=== PATIENT | female | born 1950 | race Caucasian/White ===

== ENCOUNTER 2021-09-10 10:47 | Emergency (ER) | payer MEDICARE, BC ==
--- NOTE | 2021-09-10 12:10 | EDM.PDOC ---
ED HPI GENERAL MEDICAL PROBLEM - General Chief Complaint: General Stated Complaint: SHORT OF BREATH? Time Seen by Provider: 09/10/21 11:49 Source of Information: Reports: Patient, Significant Other History Limitations: Reports: No Limitations - History of Present Illness INITIAL COMMENTS - FREE TEXT/NARRATIVE: Patient presents at the request of her [place] provider after getting results today from a 09/07/[address]/contrast that was "suboptimal" in ruling out PE. She had had a d-dimer of [address] showed "ground glass consistent with covid pneumonia". Patient was tested covid positive 12 days ago and was symptomatic 2 days prior to that; so 14 days total now. She never had fever but did have cough, dyspnea, fatigue, nausea, loss of smell/taste. That has all improved but still some lingering cough and mild dyspnea. No chest pain. Treatments [employer]: Reports: Other Medication(s) - Related Data Allergies Allergy/AdvReac Type Severity Reaction Status Date / Time escitalopram [From Lexapro] Allergy Drowsiness Verified 09/10/21 11:17 Sulfa (Sulfonamide Allergy Hives Verified 09/10/21 11:17 Antibiotics) Home Meds: Home Meds Cholecalciferol (Vitamin D3) [Vitamin D3] 2,000 unit PO DAILY 09/11/18 [History] Denosumab [Prolia] 60 mg SUBCUT ASDIRECTED 09/11/18 [History] Losartan [Cozaar] 50 mg PO DAILY 09/11/18 [History] [place]-3/DHA/Epa/Fish Oil [[place]-3 Fish Oil 1,000 MG Sfgl] 1,000 mg PO DAILY 09/11/18 [History] Timolol Maleate [Timoptic] 1 drop EYEBOTH BEDTIME 09/11/18 [History] Travoprost [Travatan Z] 1 drop EYEBOTH DAILY 09/11/18 [History] Aspirin [Adult Low Dose Aspirin EC] 81 mg PO DAILY 09/10/21 [History] Doxycycline Hyclate 100 mg PO BID 09/10/21 [History] Past Medical History HEENT History: Reports: Cataract, Glaucoma, Impaired Vision Cardiovascular History: Reports: High Cholesterol, Hypertension Respiratory History: Reports: Sleep Apnea Gastrointestinal History: Reports: Fatty Liver, GERD, Hemorrhoids, Irritable Bowel Syndrome Genitourinary History: Reports: None 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: Musculoskeletal History: Reports: Arthritis Neurological History: Reports: None Psychiatric History: Reports: Depression Endocrine/Metabolic History: Reports: None Hematologic History: Reports: None Oncologic (Cancer) History: Reports: Breast, Other (See Below) Other Oncologic History: Left breast mastectomy Dermatologic History: Reports: None - Infectious Disease History Infectious Disease History: Reports: Novel Coronavirus - Past Surgical History HEENT Surgical History: Reports: Cataract Surgery, LASIK Cardiovascular Surgical History: Reports: None Respiratory Surgical History: Reports: None GI Surgical History: Reports: Cholecystectomy, Colonoscopy, EGD, Polypectomy Female Surgical History: Reports: Breast Reconstruction, D&C, Hysterectomy, Mastectomy, Salpingo-Oophorectomy, Tubal Ligation Endocrine Surgical History: Reports: None Neurological Surgical History: Reports: None Musculoskeletal Surgical History: Reports: None Oncologic Surgical History: Reports: Biopsy of Breast Dermatological Surgical History: Reports: None Social & Family History - Tobacco Use Tobacco Use Status *Q: Never Tobacco User - Caffeine Use Caffeine Use: Reports: Coffee, Soda, Tea - Recreational Drug Use Recreational Drug Use: No ED ROS GENERAL - Review of Systems Review Of Systems: See Below Constitutional: Reports: Fatigue. Denies: Fever HEENT: Denies: Ear Pain, Throat Pain, Vision Change Respiratory: Reports: Shortness of Breath (mild but improved), Cough Cardiovascular: Denies: Chest Pain, Lightheadedness, Syncope Endocrine: Reports: Fatigue GI/Abdominal: Denies: Abdominal Pain, Diarrhea, Vomiting Skin: Denies: Cyanosis, Jaundice, Mottled, Pallor, Diaphoresis Neurological: Denies: Confusion, Dizziness, Seizure, Syncope, Trouble Speaking, Difficulty Walking Psychiatric: Denies: Agitation, Anxiety, Confusion ED EXAM, GENERAL - Physical Exam Exam: See Below Exam Limited By: No Limitations General Appearance: Alert, WD/WN, No Apparent Distress Eye Exam: Bilateral Eye: EOMI, Normal Inspection, PERRL Ears: Normal External Exam, Hearing Grossly Normal Nose: Normal Inspection, No Blood Throat/Mouth: Normal Inspection, Normal Lips, Normal Voice, No Airway Compromise Head: Atraumatic, Normocephalic Neck: Normal Inspection, Full Range of Motion Respiratory/Chest: No Respiratory Distress, Lungs Clear, Normal Breath Sounds, No Accessory Muscle Use. No: Crackles, Rales, Rhonchi, Wheezing, Stridor Cardiovascular: Regular Rate, Rhythm, No Murmur Extremities: Normal Inspection, Normal Range of Motion Neurological: Alert, Oriented, Normal Cognition, No Motor/Sensory Deficits Psychiatric: Normal Affect, Normal Mood Skin Exam: Warm, Dry, Intact, Normal Color, No Rash Course - Vital Signs Last Recorded V/S: Last Vital Signs Temp 96.7 F L 09/10/21 10:51 Pulse 55 L 09/10/21 10:51 Resp 18 09/10/21 10:51 BP 152/63 H 09/10/21 10:51 Pulse Ox 97 09/10/21 10:51 - Orders/Labs/Meds Orders: Active Orders 24 hr Category Date Time Status Sodium Chloride 0.9% [Normal Saline] 100 ml Med 09/10/21 13:15 Active IV ASDIRECTED Medication Orders Sodium Chloride (Normal Saline) 100 mls @ 200 mls/hr IV ASDIRECTED JEAN Last Admin: 09/10/21 13:14 Dose: 200 mls/hr Documented by: EMILY Meds: Medications Generic Name Dose Route Start Last Admin Trade Name Freq PRN Reason Stop Dose Admin Sodium Chloride 100 mls @ 200 mls/hr 09/10/21 13:15 09/10/21 13:14 Normal Saline IV 200 mls/hr ASDIRECTED JEAN Administration Discontinued Medications Generic Name Dose Route Start Last Admin Trade Name Freq PRN Reason Stop Dose Admin Iopamidol 75 ml 09/10/21 13:07 09/10/21 13:13 Iopamidol 755 Mg/Ml 75 Ml Bottle IVPUSH 09/10/21 13:08 75 ml ONETIME ONE Administration - Re-Assessments/Exams Free Text/Narrative Re-Assessment/Exam: 09/10/21 12:[address] report, indicating recommendation for consideration of CTA if any ongoing concern. I discussed findings with patient. She would like to know for sure there is not a PE and would like to get the CTA now. While I feel it is not very likely based on current CT and her improving symptoms, it is not unreasonable, in light of radiologists recommendation so will proceed with CTA. 09/10/21 14:04 CTA shows negative for PE but still covid pneumonia evident per report. Discussed findings and recommendations for continuing quarantine until cleared by PCP. Discharged to home in stable condition. Departure - Departure Time of Disposition: 14:05 Disposition: Home, Self-Care 01 Condition: Good Clinical Impression: Pneumonia due to COVID-19 virus - Discharge Information Referrals: Priyanka Ibrahim NP [Primary Care Provider] - Forms: ED Department Discharge Additional Instructions: CTA rules out PE today. Covid pneumonia still present so quarantine important until cleared by your PCP. Follow up with your PCP when they advise or if having any problems. If worsening, go to clinic or ER as needed. Sepsis Event Note (ED) - Evaluation Sepsis Screening Result: No Definite Risk - Focused Exam Vital Signs: Vital Signs Temp Pulse Resp BP Pulse Ox 09/10/21 10:51 96.7 F L 55 L 18 152/63 H 97 - My Orders Last 24 Hours: My Active Orders 09/10/21 13:15 Sodium Chloride 0.9% [Normal Saline] 100 ml IV ASDIRECTED - Assessment/Plan Last 24 Hours: My Active Orders 09/10/21 13:15 Sodium Chloride 0.9% [Normal Saline] 100 ml IV ASDIRECTED
[2021-09-10] MEDS: Iopamidol 755 Mg/ML 75 ML Bottle IVPUSH ONE (13:13)
[2021-09-10] MEDS: Sodium Chloride 0.9% 100 ML IV SCH (13:14)
--- NOTE | 2021-09-10 13:53 | CT ---
[id number] CT/CTA Chest EXAM: CTA Chest CLINICAL DATA: COVID, DYSPNEA, ELEVATED DIMER. COMPARISON STUDY: 2016. FINDINGS: Lungs: Scattered patchy areas of groundglass parenchymal opacification scattered throughout both lungs. Findings are consistent with pneumonia, including sequela of COVID 19. No pleural effusion or pneumothorax. Mediastinum: No mediastinal or hilar lymphadenopathy. Heart and great vessels: Heart is normal in size. No pericardial effusion. Thoracic aorta is normal in caliber. Pulmonary arteries are normal in caliber. Negative for pulmonary embolus. Bones: No acute fracture or compression deformity. Spondylosis. Sclerosis in the left T6 posterior elements. No change from 2016, consistent with benign etiology. Upper abdomen: Cholecystectomy. IMPRESSION: Negative for pulmonary embolus. Changes of pneumonia in both lungs, including possible sequela of COVID 19. Zelalem Saldana MD 09/10/21 1516 Thank you for allowing us to participate in the care of your patient.
== END 2021-09-10 14:15 | disposition home or self-care (01) ==
LOC: KA.ED 10:47
DX: U07.1 COVID-19 (principal); J12.82 Pneumonia due to coronavirus disease 2019; I10 Essential (primary) hypertension; M19.90 Unspecified osteoarthritis, unspecified site; Z86.16 Personal history of COVID-19; Z88.8 Allergy status to other drugs, medicaments and biological substances; Z88.2 Allergy status to sulfonamides; Z79.82 Long term (current) use of aspirin; Z79.899 Other long term (current) drug therapy
CPT/HCPCS: 71275; 99285; Q9967; 99284

== ENCOUNTER 2023-01-22 08:28 | Day surgery (SDC) | payer MEDICARE, BC ==
[2023-01-22] MEDS ORDERED: Sodium Chloride 0.9% 10 ML Syringe FLUSH PRN (09:00)
[2023-01-22] MEDS: Lactated Ringers 1,000 ML IV SCH (09:20)
[2023-01-22] MEDS ORDERED: Midazolam 1 MG/ML 2 ML SDV ONE (10:13)
[2023-01-22] MEDS ORDERED: Propofol 200 MG/20 ML SDV ONE (10:13)
[2023-01-22 13:21] VITALS: BP 122/68; PULSE 61
== END 2023-01-22 12:45 | disposition home or self-care (01) ==
LOC: KA.SDS 08:28
PROVIDERS: ATTEND Family Medicine
DX: Z12.11 Encounter for screening for malignant neoplasm of colon (principal); K21.9 Gastro-esophageal reflux disease without esophagitis; K64.8 Other hemorrhoids; K44.9 Diaphragmatic hernia without obstruction or gangrene; I10 Essential (primary) hypertension; E78.00 Pure hypercholesterolemia, unspecified; G47.33 Obstructive sleep apnea (adult) (pediatric); K58.9 Irritable bowel syndrome, unspecified; F32.A Depression, unspecified; Z80.0 Family history of malignant neoplasm of digestive organs; Z85.3 Personal history of malignant neoplasm of breast; Z79.899 Other long term (current) drug therapy; Z79.82 Long term (current) use of aspirin; Z88.2 Allergy status to sulfonamides; Z88.8 Allergy status to other drugs, medicaments and biological substances; Z98.890 Other specified postprocedural states
CPT/HCPCS: 00812; J2250; J2704; J7120